=== PATIENT | male | born 1980 | race Two or more races ===

== ENCOUNTER 2018-05-26 22:30 | Emergency (ER) | payer MEDICAID ==
[~2018-05-26] VITALS: Ht 165.1 cm; Wt 93.0 kg
[2018-05-27 06:33] VITALS: BP 146/81
== END 2018-05-27 07:11 | disposition home or self-care (01) ==
LOC: ER 22:30
DX: L02.213 Cutaneous abscess of chest wall (principal); F17.200 Nicotine dependence, unspecified, uncomplicated
CPT/HCPCS: 10060; 99283; X7700; Z7610

== ENCOUNTER 2018-08-16 09:16 | Emergency (ER) | payer SELFPAY ==
[~2018-08-16] VITALS: Ht 162.6 cm; Wt 91.0 kg
[2018-08-16 09:27] VITALS: BP 147/90
[2018-08-16] MEDS ORDERED: BACITRACIN ZINC OINT UDPKT TOP ONE (10:15)
== END 2018-08-16 10:28 | disposition home or self-care (01) ==
LOC: ER 09:16
DX: L02.412 Cutaneous abscess of left axilla (principal); F15.10 Other stimulant abuse, uncomplicated; F17.210 Nicotine dependence, cigarettes, uncomplicated
CPT/HCPCS: 99283; X7700; Z7610

== ENCOUNTER 2019-02-07 12:24 | Emergency (ER) | payer MEDICAID ==
[~2019-02-07] VITALS: Ht 154.9 cm; Wt 91.0 kg
[2019-02-07 12:28] VITALS: BP 142/92
[2019-02-07] MEDS ORDERED: TETANUS, DIPHTHERIA, PERTUSSIS VAC/PF 0.5ML (>7YR OLD) IM ONE (13:00)
[2019-02-07] MEDS ORDERED: LIDOCAINE HCL/PF 1% 10 MG/ML 5ML VIAL IJ ONE (13:00)
[2019-02-07] MEDS ORDERED: BACITRACIN ZINC OINT UDPKT TOP ONE (13:00)
[2019-02-07 13:58] LABS: CHLORIDE 106 mEq/L (98-107)
== END 2019-02-07 14:33 | disposition home or self-care (01) ==
LOC: ER 12:24
DX: B35.6 Tinea cruris (principal); L02.213 Cutaneous abscess of chest wall; E11.9 Type 2 diabetes mellitus without complications; F15.10 Other stimulant abuse, uncomplicated; Z98.890 Other specified postprocedural states
CPT/HCPCS: 36415; 80053; 82962; 90471; 90715; 99283; J3490

== ENCOUNTER 2019-08-14 10:36 | Emergency (ER) | payer MEDICAID ==
[~2019-08-14] VITALS: Ht 154.9 cm; Wt 79.0 kg
[2019-08-14] MEDS ORDERED: AMOXICILLIN/POTASSIUM CLAVULANATE 875/125MG TAB PO ONE (12:00)
[2019-08-14] MEDS ORDERED: IBUPROFEN 600MG TABLET PO ONE (12:00)
[2019-08-14 13:08] VITALS: BP 135/98
== END 2019-08-14 13:13 | disposition home or self-care (01) ==
LOC: ER 10:36
DX: L03.116 Cellulitis of left lower limb (principal); F15.10 Other stimulant abuse, uncomplicated; F17.200 Nicotine dependence, unspecified, uncomplicated; Z98.890 Other specified postprocedural states
CPT/HCPCS: 99283

== ENCOUNTER 2024-04-12 20:53 | Emergency (ER) | payer MEDICAID ==
[~2024-04-12] VITALS: Ht 167.6 cm; Wt 70.0 kg
[2024-04-12 20:57] VITALS: O2SAT 99
[2024-04-12 22:47] LABS: BASOPHILS % 0.4 % (0.0-2.0); EOSINOPHILS % 2.2 % (0.0-5.0); HEMATOCRIT. 40.9 % (42.0-52.0); HEMOGLOBIN. 13.6 g/dL (14.0-18.0); LYMPHOCYTES % 27.4 % (20.0-50.0); MEAN CORPUSCULAR HEMOGLOBIN 32.4 pg (28.0-32.0); MEAN CORPUSCULAR HGB CONC 33.3 g/dL (31.0-37.0); MEAN CORPUSCULAR VOLUME 97.3 fL (80.0-94.0); MEAN PLATELET VOLUME 8.2 fl (7.4-10.4); MONOCYTES % 10.8 % (2.0-8.0); NEUTROPHILS % 59.2 % (40.0-76.0); PLATELET 291 x1000/uL (130-400); RED CELL DISTRIBUTION WIDTH 14.2 % (11.6-14.6); WHITE BLOOD COUNT 7.2 x1000/uL (4.5-11.0)
[2024-04-12] MEDS: ACETAMINOPHEN 500MG TABLET PO ONE (22:49)
[2024-04-12 22:54] LABS: CARBON DIOXIDE 26 mEq/L (21-32); CHLORIDE 108 mEq/L (98-107); SODIUM 139 mEq/L (136-145)
[2024-04-12 22:55] LABS: *AMPHETAMINES SCREEN URINE PRESUMPTIVE POSITIVE (NEGATIVE); *BARBITURATES SCREEN URINE NEGATIVE (NEGATIVE); *BENZODIAZEPINES SCREEN URINE NEGATIVE (NEGATIVE); *COCAINE SCREEN URINE PRESUMPTIVE POSITIVE (NEGATIVE); CANNABINOID URINE SCREEN NEGATIVE (NEGATIVE); ECSTASY MDMA SCREEN URINE CONF.TEST INDICATED (NEGATIVE); METHADONE URINE SCREEN NEGATIVE (NEGATIVE); OPIATES URINE SCREEN NEGATIVE (NEGATIVE); PHENCYCLIDINE URINE SCREEN NEGATIVE (NEGATIVE)
[2024-04-12 23:00] LABS: CREATININE 0.8 mg/dL (0.6-1.3); ETHANOL BLOOD < 10 mg/dL (<10); GLUCOSE 101 mg/dL (70-105); UREA NITROGEN BLOOD 8 mg/dL (9-23)
[2024-04-12 23:02] LABS: ACETAMINOPHEN < 2 ug/mL (10-30)
[2024-04-13] MEDS: QUETIAPINE FUMARATE 50MG TABLET PO SCH (14:45)
[2024-04-15] MEDS: DICYCLOMINE HCL 10MG CAPSULE PO ONE (00:30)
[2024-04-15 01:51] VITALS: BP 129/93; PULSE 93; RESP 16; TEMP 98.4
== END 2024-04-15 02:19 | disposition still patient (30) ==
LOC: ER 20:53
DX: R45.851 Suicidal ideations (principal); F17.200 Nicotine dependence, unspecified, uncomplicated; F15.10 Other stimulant abuse, uncomplicated; E11.9 Type 2 diabetes mellitus without complications; Z20.822 Contact with and (suspected) exposure to COVID-19
CPT/HCPCS: 80305; 80048; 80307; 80329; 80320; 85025; 36415; 99285; 87426; Z7610 ×2; G0480

== ENCOUNTER 2024-08-23 09:24 | Inpatient (IN) | payer MEDICAID ==
[~2024-08-23] VITALS: Ht 162.6 cm; Wt 83.0 kg
[~2024-08-23 09:24] MED LIST: SULF1TAB48 MT
[2024-08-23 09:26] VITALS: O2SAT 99
[2024-08-23 09:41] LABS: BASOPHILS % 0.8 % (0.0-2.0); HEMATOCRIT. 40.5 % (42.0-52.0); HEMOGLOBIN. 13.5 g/dL (14.0-18.0); LYMPHOCYTES % 20.5 % (20.0-50.0); MEAN CORPUSCULAR HEMOGLOBIN 32.1 pg (28.0-32.0); MEAN CORPUSCULAR HGB CONC 33.4 g/dL (31.0-37.0); MEAN PLATELET VOLUME 8.4 fl (7.4-10.4); MONOCYTES % 7.8 % (2.0-8.0); NEUTROPHILS % 68.9 % (40.0-76.0); PLATELET 283 x1000/uL (130-400); RED BLOOD CELL COUNT 4.22 mill/uL (4.7-6.1); RED CELL DISTRIBUTION WIDTH 14.3 % (11.6-14.6); WHITE BLOOD COUNT 7.4 x1000/uL (4.5-11.0)
[2024-08-23 09:48] LABS: CHLORIDE 107 mEq/L (98-107); POTASSIUM 3.5 mEq/L (3.5-5.1); SODIUM 139 mEq/L (136-145)
[2024-08-23 09:49] LABS: CARBON DIOXIDE 26 mEq/L (21-32)
[2024-08-23 09:50] LABS: CALCIUM 8.5 mg/dL (8.7-10.4)
[2024-08-23 09:54] LABS: CREATININE 0.8 mg/dL (0.6-1.3)
[2024-08-23 10:16] LABS: UREA NITROGEN BLOOD 8 mg/dL (9-23)
[2024-08-23 10:30] LABS: ETHANOL BLOOD < 10 mg/dL (<10); GLUCOSE 292 mg/dL (70-105); TROPONIN I HIGH SENSITIVITY < 4 ng/L (3.0-53)
[2024-08-23] MEDS: ASPIRIN 81MG TABLET PO NR (12:27)
[2024-08-23] MEDS: PREDNISONE 20MG TABLET PO NR (14:12)
[2024-08-23] MEDS: VALACYCLOVIR HCL 500MG TABLET PO NR (14:12)
[2024-08-23 14:50] VITALS: BP 147/93; PULSE 83; RESP 18; TEMP 36.5292
[2024-08-23 15:26] LABS: CLARITY URINE CLEAR (CLEAR); COLOR URINE YELLOW (YELLOW); GLUCOSE URINE 3+ (NEGATIVE); KETONES URINE NEGATIVE (NEGATIVE); LEUKOCYTE ESTERASE URINE NEGATIVE (NEGATIVE); NITRITE URINE NEGATIVE (NEGATIVE); OCCULT BLOOD URINE NEGATIVE (NEGATIVE); PH URINE 6.5 (4.5-8.0); PROTEIN URINE NEGATIVE (NEGATIVE); SPECIFIC GRAVITY URINE 1.025 (1.005-1.030)
[2024-08-23 15:34] LABS: *AMPHETAMINES SCREEN URINE PRESUMPTIVE POSITIVE (NEGATIVE); *BARBITURATES SCREEN URINE NEGATIVE (NEGATIVE); *BENZODIAZEPINES SCREEN URINE NEGATIVE (NEGATIVE); *COCAINE SCREEN URINE NEGATIVE (NEGATIVE); METHADONE URINE SCREEN NEGATIVE (NEGATIVE); OPIATES URINE SCREEN NEGATIVE (NEGATIVE); PHENCYCLIDINE URINE SCREEN PRESUMTIVE POSITIVE (NEGATIVE)
[2024-08-23 15:35] LABS: CANNABINOID URINE SCREEN NEGATIVE (NEGATIVE); ECSTASY MDMA SCREEN URINE CONF.TEST INDICATED (NEGATIVE)
[2024-08-23] MEDS ORDERED: SERT-422 PO (15:49)
[2024-08-23] MEDS ORDERED: RISP4 PO (15:49)
[2024-08-23 16:05] LABS: BACTERIA URINE NONE SEEN; RBC URINE NONE SEEN /hpf (0-2); SQUAMOUS EPITHELIAL CELL URINE RARE /lpf (RARE/1+); WBC URINE NONE SEEN /hpf (0-2)
[2024-08-23] MEDS ORDERED: DEXTROSE 50% WATER 50ML SYRINGE IV PRN (17:45)
[2024-08-23] MEDS: INSULIN LISPRO 100 UNITS/ML SUBCUT SCH (18:10)
[2024-08-23 20:00] VITALS: BP 160/89; PULSE 92; RESP 20; TEMP 36.50292; O2SAT 97
[2024-08-23] MEDS: ONDANSETRON HCL 4MG/2ML INJ IV PRN (20:04)
[2024-08-23] MEDS: ENOXAPARIN 40MG/0.4ML SYR SUBCUT SCH (20:42)
[2024-08-23] MEDS: ATORVASTATIN CALCIUM 40MG TABLET PO SCH (20:42)
[2024-08-23] MEDS: BLOOD SUGAR DIAGNOSTIC STRIP TEST SCH (20:45)
[2024-08-23] MEDS ORDERED: ENOXAPARIN 30MG/0.3ML SYR SUBCUT SCH (21:00)
[2024-08-23] MEDS ORDERED: ASPIRIN 81MG TABLET PO SCH (22:00)
[2024-08-23] MEDS: BISMUTH SUBSALICYLATE 262 MG/15 ML-120ML BOTTLE PO NR (22:23)
[2024-08-23] MEDS ORDERED: ZOLPIDEM TARTRATE 5MG TABLET PO PRN (23:45)
[2024-08-23] MEDS: MAGNESIUM/ALUMINUM HYDROXIDE/SIMETHICONE 30ML UDC PO PRN (23:50)
[2024-08-24] MEDS ORDERED: SERTRALINE HCL 50MG TABLET PO SCH (09:00)
[2024-08-24] MEDS ORDERED: ASPIRIN 81MG TABLET PO SCH (09:00)
== END 2024-08-23 23:50 | disposition left against medical advice (07) | DRG 48 ==
LOC: ER 09:24 → 7WST 12:58 → EDBEDREQ 13:02 → EDBEDREQTM 13:02
PROVIDERS: ADMIT Internal Medicine; ATTEND Internal Medicine
DX: G62.9 Polyneuropathy, unspecified (principal); I11.9 Hypertensive heart disease without heart failure; D64.9 Anemia, unspecified; E11.65 Type 2 diabetes mellitus with hyperglycemia; F19.10 Other psychoactive substance abuse, uncomplicated; R29.810 Facial weakness; R20.0 Anesthesia of skin; Z53.29 Procedure and treatment not carried out because of patient's decision for other reasons; Z86.73 Personal history of transient ischemic attack (TIA), and cerebral infarction without residual deficits; Z79.899 Other long term (current) drug therapy
CPT/HCPCS: 36415; 71045; 80048; 80305; 80320; 81003; 82962; 83036; 84484; 85025; 93005; 99285; J1650; J1815; J2405; J7512; G0480